=== PATIENT | male | born 1940 | race Caucasian/White ===

== ENCOUNTER 2023-11-02 10:23 | Outpatient (RCR) | payer MEDICARE, OTHER, SELFPAY | END 2023-11-02 23:59 | disposition home or self-care (01) | LOC: RST 10:23 | PROVIDERS: ATTENDING PHYSICIAN Psychiatry & Neurology Behavioral Neurology & Neuropsychiatry | DX: G20.A1 Parkinson's disease without dyskinesia, without mention of fluctuations (principal); R47.1 Dysarthria and anarthria; R49.0 Dysphonia | CPT/HCPCS: 92524 ==

== ENCOUNTER 2023-12-23 14:54 | Outpatient (RCR) | payer MEDICARE, OTHER, SELFPAY | END 2023-12-23 23:59 | disposition home or self-care (01) | LOC: RST 14:54 | PROVIDERS: ATTENDING PHYSICIAN Psychiatry & Neurology Behavioral Neurology & Neuropsychiatry | DX: G20.A1 Parkinson's disease without dyskinesia, without mention of fluctuations (principal); R47.1 Dysarthria and anarthria | CPT/HCPCS: 92507 ==

== ENCOUNTER 2023-12-31 15:09 | Outpatient (RCR) | payer MEDICARE, OTHER, SELFPAY | END 2024-01-04 07:39 | disposition home or self-care (01) | LOC: RST 15:09 | PROVIDERS: ATTENDING PHYSICIAN Psychiatry & Neurology Behavioral Neurology & Neuropsychiatry | DX: G20.A1 Parkinson's disease without dyskinesia, without mention of fluctuations (principal); R47.1 Dysarthria and anarthria; R49.0 Dysphonia | CPT/HCPCS: 92507 ==